=== PATIENT | female | born 1995 | race Caucasian/White ===

== ENCOUNTER 2017-06-10 19:42 | Emergency (ER) | payer MEDICAID ==
[2017-06-10 20:10] VITALS: RESP 18
--- NOTE | 2017-06-10 20:22 | EDPHY ---
H & P Smoking Status: Never smoked Time Seen by Provider: 06/10/17 19:46 HPI/ROS: CHIEF COMPLAINT: Depression, suicidal ideation HISTORY OF PRESENT ILLNESS: Patient is a 22-year-old female who presents emergency department with police on an M1 hold. Per the M1 hold and report the patient has been feeling depressed. She told her boyfriend that she was going [place] herself with a knife. Police were notified and brought her to the emergency department. The patient states he has been feeling depressed. She is going to life issues because she is in a "separation "with the father of her child. Patient denies suicidal attempts in the past but has performed cutting another self-harm. She denies ingestion. REVIEW OF SYSTEMS: My complete review of systems is negative except as mentioned in the HPI. ( Tess De Leon) Past Medical/Surgical History: Includes depression, anxiety, psoriasis (Tess De Leon) Physical Exam: Vitals noted GENERAL: Well-appearing, in no acute distress, alert. HEENT: Eyes normal to inspection, normal pharynx, no signs of dehydration. NECK: No thyromegaly, no lymphadenopathy, supple. RESPIRATORY: Clear to auscultation bilaterally, no rales, rhonchi or wheezing. CVS: Regular rate and rhythm, no rubs, murmurs, or gallops. ABDOMEN: Soft, nontender, nondistended, no organomegaly. BACK: Normal to inspection, no CVA tenderness. SKIN: Normal color, no rash, warm, dry. No pallor. Tattoos. EXTREMITIES: Old cutting scars on her arm and legs. No pedal edema, no joint swelling. NEURO/PSYCH: Alert and oriented x3, normal mood and affect, normal motor sensory exam. No obvious cranial nerve deficit. (Tess De Leon) Constitutional: Initial Vital Signs Temperature (C) 36.9 C 06/10/17 19:45 Heart Rate 89 06/10/17 19:45 Respiratory Rate 18 06/10/17 19:45 Blood Pressure 117/74 06/10/17 19:45 O2 Sat (%) 98 06/10/17 19:45 O2 Delivery Mode Room Air Allergies/Adverse Reactions: No Known Allergies Allergy (Unverified 06/10/17 20:10) Home Medications: Medication Instructions Recorded Etanercept [Enbrel] 50 mg SQ 06/10/17 Sertraline HCl [Zoloft 50mg (*)] 50 mg PO DAILY 06/10/17 Medical Decision Making ED Course/Re-evaluation: In the emergency department I discussed the plan with the patient. She is aware she is on M1 hold. Laboratory studies were obtained. The patient consented. Patient had a mildly elevated white count of 12. Her chemistry panel is unremarkable. is negative. Patient's tox screen was positive for THC. Negative aspirin and salicylate. 2230: The patient is signed out at change of shift to Dr. Gonzalez. (Tess De Leon) [id number]: This patient has been evaluated by mental health. They feel safe allowing her to go home. She denies wanting to hurt herself or anybody else. She denies suicidal ideation. Dr. Casillas with psychiatry was consulted. M1 hold was lifted. (Yash Gonzalez) Differential Diagnosis: My differential includes but not limited to depression, anxiety, suicidal ideation, ingestion (Tess De Leon) - Data Points Laboratory Results: Laboratory Results 06/10/17 20:10 06/10/17 20:10 06/10/17 06/10/17 06/10/17 20:10 20:10 20:10 WBC 12.20 10^3/uL H 10^3/uL (3.80-9.50) RBC 4.93 10^6/uL 10^6/uL (4.18-5.33) Hgb 12.9 g/dL g/dL (12.6-16.3) Hct 40.2 % % (38.0-47.0) MCV 81.5 fL fL (81.5-99.8) MCH 26.2 pg L pg (27.9-34.1) MCHC 32.1 g/dL L g/dL (32.4-36.7) RDW 15.4 % H % (11.5-15.2) Plt Count 273 10^3/uL 10^3/uL (150-400) MPV 10.1 fL fL (8.7-11.7) Neut % (Auto) 80.2 % H % (39.3-74.2) Lymph % (Auto) 14.8 % L % (15.0-45.0) Cobb % (Auto) 4.3 % L % (4.5-13.0) Eos % (Auto) 0.2 % L % (0.6-7.6) Baso % (Auto) 0.2 % L % (0.3-1.7) Nucleat RBC Rel Count 0.0 % % (0.0-0.2) Absolute Neuts (auto) 9.79 10^3/uL H 10^3/uL (1.70-6.50) Absolute Lymphs (auto) 1.80 10^3/uL 10^3/uL (1.00-3.00) Absolute Monos (auto) 0.52 10^3/uL 10^3/uL (0.30-0.80) Absolute Eos (auto) 0.03 10^3/uL 10^3/uL (0.03-0.40) Absolute Basos (auto) 0.02 10^3/uL 10^3/uL (0.02-0.10) Absolute Nucleated RBC 0.00 10^3/uL 10^3/uL (0-0.01) Immature Gran % 0.3 % % (0.0-1.1) Immature Gran # 0.04 10^3/uL 10^3/uL (0.00-0.10) Sodium 141 mEq/L mEq/L (134-144) Potassium 4.1 mEq/L mEq/L (3.5-5.2) Chloride 105 mEq/L mEq/L (97-110) Carbon Dioxide 22 mEq/l mEq/l (22-31) Anion Gap 14 mEq/L mEq/L (8-16) BUN 9 mg/dL mg/dL (7-23) Creatinine 0.7 mg/dL mg/dL (0.6-1.0) Estimated GFR > 60 Glucose 78 mg/dL mg/dL (70-100) Calcium 10.2 mg/dL mg/dL (8.5-10.4) Beta HCG, Qual NEGATIVE Salicylates < 1.0 mg/dL L mg/dL (2.0-20.0) Urine Opiates Screen Acetaminophen < 10 mcg/mL L mcg/mL (10-30) Urine Barbiturates Ur Phencyclidine Scrn Ur Amphetamine Screen U Benzodiazepines Scrn Urine Cocaine Screen U Marijuana (THC) Screen Ethyl Alcohol < 10 mg/dL mg/dL (0-10) 06/10/17 20:00 WBC RBC Hgb Hct MCV MCH MCHC RDW Plt Count MPV Neut % (Auto) Lymph % (Auto) Cobb % (Auto) Eos % (Auto) Baso % (Auto) Nucleat RBC Rel Count Absolute Neuts (auto) Absolute Lymphs (auto) Absolute Monos (auto) Absolute Eos (auto) Absolute Basos (auto) Absolute Nucleated RBC Immature Gran % Immature Gran # Sodium Potassium Chloride Carbon Dioxide Anion Gap BUN Creatinine Estimated GFR Glucose Calcium Beta HCG, Qual Salicylates Urine Opiates Screen NEGATIVE (NEGATIVE) Acetaminophen Urine Barbiturates NEGATIVE (NEGATIVE) Ur Phencyclidine Scrn NEGATIVE (NEGATIVE) Ur Amphetamine Screen NEGATIVE (NEGATIVE) U Benzodiazepines Scrn NEGATIVE (NEGATIVE) Urine Cocaine Screen NEGATIVE (NEGATIVE) U Marijuana (THC) Screen NON-NEGATIVE H (NEGATIVE) Ethyl Alcohol Medications Given: Discontinued Medications Acetaminophen (Tylenol) 650 mg PO EDNOW ONE Stop: 06/10/17 20:40 Last Admin: 06/10/17 20:40 Dose: 650 mg Departure - Departure Disposition: Home, Routine, Self-Care Clinical Impression: Suicidal ideation, Severe major depression Condition: Good Instructions: Depression (ED) Additional Instructions: 1. Return emergency room immediately if you have thoughts of wanting to hurt herself or anybody else. 2. Please follow up with resources you were given Referrals: Patient,NotPresent [Unknown] - As per Instructions
[2017-06-10 20:36] LABS: % IMMATURE GRANULYOCYTES 0.3 % (0.0-1.1); ABSOLUTE IMMATURE GRANULOCYTES 0.04 10^3/uL (0.00-0.10); ADD DIFF? NO; ADD MORPH? NO; ADD SCAN? NO; ATYPICAL LYMPHOCYTE FLAG 10 (0-99); FRAGMENT RBC FLAG 0 (0-99); HEMATOCRIT 40.2 % (38.0-47.0); HEMOGLOBIN 12.9 g/dL (12.6-16.3); LEFT SHIFT FLG 0 (0-99); LIPEMIA HEMOLYSIS FLAG 80 (0-99); MEAN CELL HEMOGLOBIN 26.2 pg (27.9-34.1); MEAN CELL HEMOGLOBIN CONCENTR. 32.1 g/dL (32.4-36.7); MEAN CELL VOLUME 81.5 fL (81.5-99.8); MEAN PLATELET VOLUME 10.1 fL (8.7-11.7); PLATELET CLUMPS FLAG 10 (0-99); PLATELET COUNT 273 10^3/uL (150-400); RED BLOOD CELL COUNT 4.93 10^6/uL (4.18-5.33); RED CELL DISTRIBUTION WIDTH 15.4 % (11.5-15.2)
[2017-06-10] MEDS ORDERED: ACETAMINOPHEN 325 MG TAB ONE (20:37)
[2017-06-10] MEDS ORDERED: ACETAMINOPHEN 325 MG TAB PO ONE (20:39)
[2017-06-10 20:43] LABS: ANION GAP 14 mEq/L (8-16); CALCIUM 10.2 mg/dL (8.5-10.4); CARBON DIOXIDE 22 mEq/l (22-31); CHLORIDE 105 mEq/L (97-110); CREATININE 0.7 mg/dL (0.6-1.0); ETHANOL SERUM < 10 mg/dL (0-10); GLOMERULAR FILTRATION RATE > 60; GLUCOSE 78 mg/dL (70-100); POTASSIUM 4.1 mEq/L (3.5-5.2); SALICYLATE < 1.0 mg/dL (2.0-20.0); SODIUM 141 mEq/L (134-144)
[2017-06-11 04:06] VITALS: BP 112/72; PULSE 87; TEMP 98.2; O2SAT 97
== END 2017-06-11 04:06 | disposition home or self-care (01) ==
LOC: EEVIPCON 19:42
DX: R45.851 Suicidal ideations (principal); F32.2 Major depressive disorder, single episode, severe without psychotic features
CPT/HCPCS: 80305; G0480